=== PATIENT | male | born 1955 | race Caucasian/White ===

== ENCOUNTER → 2022-04-14 | Outpatient (CLI) | payer MEDICARE, OTHER ==
--- NOTE | 2022-04-15 21:51 | MR ---
EXAMINATION TYPE: MR shoulder LT wo con DATE OF EXAM: 04/14/2022 COMPARISON: None. HISTORY: Left shoulder pain and limited range of motion due to fall almost 2 months ago. Primary oste oarthritis. History of prior surgery. TECHNIQUE: Multiplanar, multisequence imaging of the left shoulder is performed without contrast. FINDINGS: Rotator Cuff: Distal supraspinatus tendon shows significant tear of the anterior two thirds fibers me asuring 14 mm in AP length sagittal image 8 and 1.7 cm transversely coronal image 21. Infraspinatus t endon intact. Rotator cuff muscle bulk preserved. Acromioclavicular Joint: Moderate narrowing and capsular hypertrophy. Mass effect along underlying fa t plane and sagittal image 16 for reference. Type II downsloping acromion. Glenohumeral Joint: Small to moderate size joint effusion. No significant spurring. Labrum: Increased signal superior labrum consistent with degenerative tearing. Biceps Tendon: The long head of biceps is in normal location within bicipital groove. Focal increased signal extra-articular portion coronal images 21 and 22. Bone marrow signal: Artifact from prior rotator cuff surgery seen in the humeral head coronal images 16 through 19.. Other: No additional significant abnormality is appreciated. IMPRESSION: 1. Significant recurrent tear of the anterior two thirds fibers of the distal supraspinatus tendon as detailed above. 2. 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 3. Partial tearing of the long head of biceps tendon as detailed above.
== END | disposition home or self-care (01) ==
LOC: RADMRIMAIN 11:38
PROVIDERS: ATTEND Nurse Practitioner
DX: M75.112 Incomplete rotator cuff tear or rupture of left shoulder, not specified as traumatic (principal); M19.012 Primary osteoarthritis, left shoulder